=== PATIENT | female | born 1995 | race Caucasian/White ===

== ENCOUNTER → 2020-02-17 | Outpatient (CLI) | payer SELFPAY ==
[2020-02-17 10:57] LABS: BASO # 0.1 (0.02-0.10); EOS # 0.3 (0.04-0.40); EOS % 4.8 % (1.0-5.0); HEMATOCRIT 40.6 % (37.0-47.0); HEMOGLOBIN 12.7 g/dL (12.5-16.0); LYMPH# 2.1 (1.50-4.00); MEAN CELL VOLUME 88 fl (78-100); MEAN CORPUSCULAR HEMOGLOBIN 27 pg (27-31); MEAN CORPUSCULAR HGB CONC 31 g/dL (33-37); MEAN PLATELET VOLUME 9.1 fl (7.4-10.4); MONO # 0.3 (0.20-0.80); NEU # 3.4 (1.40-6.50); PLATELET COUNT 349 K/mm3 (130-400); RED BLOOD COUNT 4.63 M/mm3 (4.10-5.30); RED CELL DISTRIBUTION WIDTH 13.6 % (11.5-14.5); WHITE BLOOD COUNT 6.3 K/mm3 (4.8-10.8)
[2020-02-17 11:26] LABS: ALBUMIN 3.8 g/dL (3.5-5.0)
[2020-02-17 11:27] LABS: POTASSIUM 4.2 mmol/L (3.5-5.1)
[2020-02-17 11:29] LABS: TOTAL PROTEIN 7.3 g/dL (6.4-8.3)
[2020-02-17 11:31] LABS: TOTAL BILIRUBIN 0.3 mg/dL (0.2-1.2)
[2020-02-20 19:06] LABS: ADRENOCORTICOTROPIC HORMONE 14 pg/mL (5-27)
== END ==
LOC: LAB 10:16
PROVIDERS: Family Medicine
DX: R53.83 Other fatigue (principal)

== ENCOUNTER → 2020-02-20 | Outpatient (CLI) | payer SELFPAY ==
[2020-02-28 10:47] LABS: CORTISOL,URINE 29
== END ==
LOC: LAB 12:47
PROVIDERS: Family Medicine
DX: R53.83 Other fatigue (principal)

== ENCOUNTER 2021-04-15 15:35 | Emergency (ER) | payer OTHER ==
[2021-04-15 17:42] VITALS: BP 125/79
== END 2021-04-15 17:42 | disposition home or self-care (01) ==
LOC: ED 15:35
DX: O98.511 Other viral diseases complicating pregnancy, first trimester (principal); U07.1 COVID-19; Z3A.09 9 weeks gestation of pregnancy
CPT/HCPCS: J7030